=== PATIENT | female | born 1955 | race Caucasian/White ===

== ENCOUNTER 2017-01-11 23:09 | Inpatient (IN) | payer MEDICARE, OTHER ==
[~2017-01-11] VITALS: Ht 157.5 cm; Wt 142.7 kg
--- NOTE | ~2017-01-11 | HP ---
History And Physical [place] [place]. [address] NAME: SWAPNIL BEGUM : 53 STATUS : ADM IN [facility]#: [id number] AGE: 61 ADM/REG DATE : 01/12/17 MR#: [id number] REPORT SERV DATE: 01/12/17 DICTATED BY: CHIRAG SUÁREZ DATE: 01/12/17 REPORT STATUS : Draft TRANSCRIBED BY: MODMelissa DATE: 01/12/17 DATE OF ADMISSION: 01/12/2017 CHIEF COMPLAINT: Multiple. HISTORY OF PRESENT ILLNESS: The patient is a very pleasant 61-year-old white female. She previously has received her care in [place] at [facility]. She has a complex past medical history. She does have a chronic trach, which she has had in place for the last four years after she suffered an episode of what sounds like necrotizing fasciitis with a prolonged hospital stay, intubation, and ultimately resulting in a trach. She suffers from sleep apnea, so the decision was made to keep the trach as this improved her respiratory status. She has a significant cardiac history. She had a bypass in 2000. She had her last catheterization at [facility] in [place] in 02/2016. The patient states at that time, she had nonobstructive disease at her bypass sites and she had some distal very small vessel disease that was unamenable to catheterization. She has been in the hospital several times in the last few weeks for what she describes as fluttering in her chest, diaphoresis, and dizziness. She has had several medication adjustments in that time span, and she was actually in the hospital last week, at which time, they increased her hydralazine, put her back on her lisinopril. I gave her additional diuretics for heart failure. Apparently, she had an echo at her last hospital stay and she had an EF of 45%. She states she has continued to have intermittent episodes of feeling poorly with fluttering in her chest, dizziness. She has had a couple of different antidepressants prescribed for what they thought were panic attacks, however, she states those made her feel even worse. She started Ranexa, took maybe one dose, and states she felt dizzy when she stood up when she took that so she simply stopped this medication. She has not had typical chest pain. She has not had any documented fever. She has had some dysuria the last 48 hours. She has had no real abdominal pain. She has not had a new cough just these intermittent episodes of fluttering, diaphoresis, and dizziness. I do not have access to her records, but apparently, she has a history of chronic kidney disease and actually was referred to a pesticide use medical coordinator in her local town, but has not had the opportunity to see him just yet. In addition, she has a chronic anemia. She has had an EGD in the past, but not a colonoscopy. PAST MEDICAL HISTORY: 1. Sleep apnea with history of tracheostomy four years ago after prolonged intubation. 2. Probable COPD. 3. GI bleeding in the past. 4. Necrotizing fasciitis and MRSA infection requiring extensive skin and tissue surgery around her rectum extending around her abdominal wall in 2002. 5. CAD with history of CABG in 2000 with catheterization, 02/[address] [facility] with nonobstructive disease in her bypass graft and some very small vessel disease. 6. History of DVT/PE with hypercoagulable state, which is of unknown type, status post IVC filter, on chronic warfarin. 7. Systolic congestive heart failure with EF of 45%. 8. Considerable cardiomegaly. 9. Hypertension. 10.CKD, stage 3. History And Physical [address] [address] NAME: SWAPNIL BEGUM : 53 STATUS : ADM IN [facility]#: [id number] AGE: 61 ADM/REG DATE : 01/12/17 MR#: [id number] REPORT SERV DATE: 01/12/17 DICTATED BY: CHIRAG SUÁREZ DATE: 01/12/17 REPORT STATUS : Draft TRANSCRIBED BY: STEPHANIE DATE: 01/12/17 11.Anemia. 12.Morbid obesity. 13.Chronic hypoxemic respiratory failure, on 2 to 3 L of O2. SOCIAL HISTORY: She quit smoking in her 20s. She does not use alcohol. She is , but her ex- is at bedside. ALLERGIES: NO KNOWN DRUG ALLERGIES. PAST SURGICAL HISTORY: 1. She has had a trach. 2. She has had bypass surgery. 3. She has had an extensive skin and soft tissue surgery from her rectum extending around to her abdominal wall. REVIEW OF SYSTEMS: Full 10-point review of systems obtained. Pertinent positives as mentioned in the HPI. HOME MEDICATIONS: Reviewed and attached. PHYSICAL EXAMINATION: VITAL SIGNS: BP 165/73, temperature 98.3, pulse 71, respiratory rate 22, sats are 94% on 3 L. GENERAL: Morbidly obese white female. HEENT: Normocephalic, atraumatic. Throat is clear. NECK: Supple. Trach is in place. HEART: Regular rate and rhythm. LUNGS: Diminished at the bases, but otherwise clear. ABDOMEN: Soft, nontender, but obese with a large pannus. EXTREMITIES: Warm and dry. She has venous stasis changes. Diminished pulses at the feet, but she does not have significant lower extremity edema today. NEUROLOGIC: She is alert. She is oriented to person, place, and time. Her speech is intact. She has symmetrical strength and tone in all four extremities. PSYCH: Her mood and affect are appropriate. EKG shows sinus rhythm with no acute ST-T wave changes. LABORATORY AND X-RAY: Chest x-ray shows very marked cardiomegaly, some questionable pulmonary edema, but difficult to tell as she is quite large. Urinalysis shows greater than 182 whites with clumps, 21 reds, and large leukocyte esterase. BNP is 435. Troponin is 0.09 with an MB of 1.1. CBC: Hemoglobin and hematocrit are 9.2 and 32, platelet count 311, INR is 2, white count is 12.0. Chemistry panel shows sodium 139, potassium 4.6, chloride 102, CO2 30, BUN and creatinine 30 and 1.80, glucose is 178, magnesium is 2.5. Troponin is 0.09. ASSESSMENT/PLAN: 1. Urinary tract infection. We will treat with IV Rocephin, culture blood and urine, and History And Physical [address] [address] NAME: SWAPNIL BEGUM : 53 STATUS : ADM IN [facility]#: [id number] AGE: 61 ADM/REG DATE : 01/12/17 MR#: [id number] REPORT SERV DATE: 01/12/17 DICTATED BY: CHIRAG SUÁREZ DATE: 01/12/17 REPORT STATUS : Draft TRANSCRIBED BY: MODL DATE: 01/12/17 followup. 2. Acute on chronic kidney disease. Her previous creatinine was 1.3. She was recently placed back on her SOLOMON inhibitor. I think the first thing to do is stop her Solomon and treat her urinary tract infection. I need to obtain additional records on the patient. Hopefully by holding her SOLOMON inhibitor and treating her urinary tract infection, her kidney function will improve. I am hesitant to hold her diuretic as I think she is very prone to volume overload. 3. Spells with fluttering, diaphoresis, and dizziness. It is really difficult to tell the exact etiology. Certainly, she could be having some orthostasis related to medication changes, could be an unusual anginal equivalent, although she had a cath in 02/2016 and had open grafts, and she recently had an echo as well as multiple sets of cardiac enzymes. I am going to do two more sets of cardiac enzymes here as her initial troponin is 0.09. I am going to discontinue her beta shama and aspirin. I am going to reduce her hydralazine to her original dose of 25 t.i.d. I am going to hold the Ranexa since this is a new medication for her. I am going to stop the Effexor. We will monitor her on the charge attendant and obtain all her old records. 4. Obstructive sleep apnea with chronic trach with O2. 5. Chronic hypoxemic respiratory failure, recently this is worsened. 6. History of coronary artery disease, status post CABG and subsequent cath in 02/2016, grafts look open. Continue aspirin, beta blockade, statin therapy. 7. History of deep venous thrombosis/pulmonary embolism with IVC filter, on chronic warfarin. Daily PT/INR. Continue Coumadin. 8. Ischemic cardiomyopathy, EF 45%. Continue daily Lasix, beta blockade. I am going to hold her Solomon due to her acute kidney injury. 9. History of hypertension. Again, I am adjusting her blood pressure medications. 10.Anemia, chronic. We will check iron studies, reticulocyte count, and go from there. 11.Deep venous thrombosis prophylaxis, already fully anticoagulated. 12.Disposition pending above. PATY/STEPHANIE Chirag Suárez M.D. / [id number] CC: MD MIGUEL A Nickerson,MILES Keller M.D.
--- NOTE | ~2017-01-11 | DS ---
Discharge Summary [facility] [address] [place]. [address] NAME: SWAPNIL BEGUM : 53 STATUS : DIS IN PAT#: [id number] AGE: 62 ADM/REG DATE : 01/12/17 MR#: [id number] REPORT SERV DATE: 01/15/17 DICTATED BY: WILLARD GHOTRA DATE: 01/14/17 REPORT STATUS : Draft TRANSCRIBED BY: MODL DATE: 01/14/17 ADMISSION DATE: 01/12/2017 DISCHARGE DATE: 01/14/2017 DISCHARGE DIAGNOSES: 1. Urinary tract infection, more likely a positive urinalysis without a true urinary tract infection. 2. Acute on chronic kidney disease, likely this is her new baseline of her creatinine at 1.3. 3. Multiple spells of fluttering, diaphoresis and dizziness, may have been secondary to medication reactions, the patient has been asymptomatic throughout this hospital stay. 4. Chronic obstructive pulmonary disease with a chronic trach. 5. Morbid obesity with probable component of obesity hypoventilation syndrome. 6. Acute on chronic hypoxic respiratory failure, the patient does already have oxygen at home and she had home O2 evaluation that she failed, the patient will be discharged to home with home O2 at 2 L. 7. Coronary artery disease. 8. History of deep venous thrombosis and pulmonary embolism with an IVC filter and chronic Coumadin anticoagulation. 9. Ischemic cardiomyopathy with baseline ejection fraction of 45%. 10.Hypertension. 11.Chronic anemia. CONSULTANTS: None. PROCEDURES: None. HOSPITAL COURSE: This is a 62-year-old lady who was admitted to the hospital with initial diagnosis of urinary tract infection as well as acute kidney injury and spells of fluttering, diaphoresis, and dizziness. For details, please refer to excellent H and P dictated by Dr. Deyanira Suárez. In summary, the patient was admitted and was given IV fluid resuscitation as well as antibiotic therapy. By the next day, the patient's admission white blood cell count of 13 had normalized and the patient was actually no longer complaining of any urinary tract infection symptoms. Also, despite fluid resuscitation and excellent urine output, the patient's creatinine which was 1.8 on admission only improved to 1.6 without too much difference in her BUN, and thus, it is likely that the patient not just have an acute kidney injury, but likely a progressed chronic kidney disease. In any case, the patient was able to maintain normal electrolyte levels, and as far as the patient's initial complaint of fluttering, diaphoresis, and dizziness, the patient has remained asymptomatic throughout the hospital stay. It is again difficult to tell the exact etiology, but the patient has been started on quite a few medications recently which may have been the cause for her nonspecific symptoms. I did go ahead and stop the Effexor as well as Remeron which are two main new medications, and I have decreased her hydralazine back to her original dose of 25 mg p.o. b.i.d. The patient's blood pressure remained stable during this hospital stay with such a regimen, and I feel the patient may simply be followed up as an outpatient with a more gradual medication adjustments as needed. Discharge Summary [address] [address] NAME: SWAPNIL BEGUM : 53 STATUS : DIS IN PAT#: [id number] AGE: 62 ADM/REG DATE : 01/12/17 MR#: [id number] REPORT SERV DATE: 01/15/17 DICTATED BY: WILLARD GHOTRA DATE: 01/14/17 REPORT STATUS : Draft TRANSCRIBED BY: STEPHANIE DATE: 01/14/17 Also, the patient has a chronic trach, and the patient does have some oxygen support at home. At rest, the patient does not depend on any oxygen, but with prolonged conversations, the patient does desaturate oxygen level down to 84%, mainly because she has to cover her trach when she talks. Otherwise, the patient is comfortable on room air provided the trachea is unobstructed. The patient still qualified for home O2 and now she is going home with oxygen, keeping in mind that the patient has already had oxygen at home. In any case, the patient is now appearing back at her baseline health status, and she is now being discharged home with close outpatient followups plans. DISPOSITION: Home with home health. DISCHARGE MEDICATIONS: 1. Discontinued Effexor. 2. Discontinued Ranexa. 3. Hydralazine was reduced back to 25 mg p.o. b.i.d. from 50 mg p.o. t.i.d. Otherwise, no medication changes. FOLLOWUP: Please follow up with PCP in the next one to two weeks. A total of 35 minutes spent in coordinating this patient's discharge today. YSC/MODL Willard Ghotra MD / [id number] CC: MD MIGUEL A NickersonMILES
[2017-01-12 00:22] LABS: BASOPHILS 0.3 %; BASOPHILS ABSOLUTE 0.04 10/3/uL (0.0-0.16); EOSINOPHILS 1.3 %; EOSINOPHILS ABSOLUTE 0.16 10/3/uL (0.0-0.53); ER CBC TAT 0 Hrs 15 Mins; HEMOGLOBIN 9.2 g/dL (12.0-16.0); IMMATURE GRANULOCYTES 0.2 %; IMMATURE GRANULOCYTES ABSOLUTE 0.02 10/3/uL (0.0-0.11); LYMPHOCYTES 23.7 %; LYMPHOCYTES ABSOLUTE 2.84 10/3/uL (0.67-4.30); MEAN CORPUS HGB CONC 28.8 g/dL (32.0-36.0); MEAN CORPUSCULAR HEMOGLOB 24.8 pg (26.0-34.0); MEAN CORPUSCULAR VOLUME 86.3 fL (80-100); MEAN PLATELET VOLUME 10.9 fL (9.2-13.0); MONOCYTES 7.1 %; MONOCYTES ABSOLUTE 0.85 10/3/uL (0.21-1.20); NEUTROPHILS 67.4 %; NEUTROPHILS ABSOLUTE 8.08 10/3/uL (2.02-8.40); PLATELET COUNT 311 10/3/uL (150-400); RBC DISTRIBUTION WIDTH 18.6 % (12.0-16.0); RED CELL COUNT 3.71 10/6/uL (4.0-5.6)
[2017-01-12 00:31] LABS: MANUAL DIFF NO %
[2017-01-12 00:32] LABS: PARTIAL THROMBO TIME 42.6 SEC (22.5-37.2); PROTIME (NOT ORD) 22.5 SEC (12.0-14.5)
[2017-01-12 00:42] LABS: BUN (BLOOD UREA NITROGEN) 30 MG/DL (6-23); CALCIUM, SERUM 9.1 MG/DL (8.5-10.4); CHLORIDE, SERUM 102 MMOL/L (96-112); CO2 (CARBON DIOXIDE) 30 MMOL/L (24-34); GFR AFRICAN AMERICAN 34 ML/MIN (>=60); GFR NON AFRICAN AMERICAN 30 ML/MIN (>=60); GLUCOSE, SERUM 178 MG/DL (60-99); POTASSIUM, SERUM 4.6 MMOL/L (3.5-5.3); SODIUM, SERUM 139 MMOL/L (135-148)
[2017-01-12 00:45] LABS: TROPONIN I 0.09 NG/ML (<0.05)
[2017-01-12 00:46] LABS: CHEST PAIN PROFILE TAT 0 Hrs 38 Mins
[2017-01-12 02:18] LABS: CK-MB 1.1 NG/ML; CPK 97 U/L (0-200); TROPONIN I 0.09 NG/ML (<0.05)
[2017-01-12 03:52] LABS: ASCORBIC ACID (UR NOT ORDER) NEG (NEG); BILIRUBIN, URINE NEGATIVE (NEG); ER URINALYSIS TAT 0 Hrs 00 Mins; KETONE, URINE NEGATIVE (NEG); LEUKOCYTE ESTERASE(NOT OR LARGE (NEG); NITRITE (URINE) NEG (NEG)
[2017-01-12 03:56] LABS: WBC (NOT ORDERED) (RFLEX) > 182 (0-5)
[2017-01-12] MEDS ORDERED: C25 PO (09:04)
[2017-01-12] MEDS ORDERED: C5 PO (09:05)
[2017-01-12] MEDS ORDERED: RAN500 PO (09:06)
[2017-01-12] MEDS ORDERED: IMDUR60 PO (09:06)
[2017-01-12] MEDS ORDERED: FOLIC PO (09:06)
[2017-01-12] MEDS ORDERED: LOP100 PO (09:07)
[2017-01-12] MEDS ORDERED: LIPITOR40 PO (09:07)
[2017-01-12] MEDS ORDERED: VITD PO (09:07)
[2017-01-12] MEDS ORDERED: CYANO1000T PO (09:07)
[2017-01-12] MEDS ORDERED: PROTONIX PO (09:08)
[2017-01-12] MEDS ORDERED: CLARIT10 PO (09:08)
[2017-01-12] MEDS ORDERED: SPIRO25 PO (09:09)
[2017-01-12] MEDS ORDERED: PRIN20 PO (09:09)
[2017-01-12] MEDS ORDERED: EFFEXXR37 PO (09:10)
[2017-01-12] MEDS ORDERED: PROZAC40 MG PO (09:11)
[2017-01-12] MEDS ORDERED: LEVEMFLXPN SC (09:13)
[2017-01-12] MEDS ORDERED: L80 PO (09:13)
[2017-01-12] MEDS ORDERED: APRES50 PO (09:13)
[2017-01-12] MEDS ORDERED: MOMUD PO (09:14)
[2017-01-12] MEDS ORDERED: L40 PO (09:14)
[2017-01-12] MEDS ORDERED: ZOFRAN4 PO (09:14)
[2017-01-12] MEDS ORDERED: D.O.S.100 MG PO (09:14)
[2017-01-12] MEDS ORDERED: NOVOPEN SC (09:14)
[2017-01-12] MEDS ORDERED: T PO (09:15)
[2017-01-12] MEDS ORDERED: FLONASE NAS (09:15)
[2017-01-12] MEDS ORDERED: FLEETS ENEMA PR (09:18)
[2017-01-12 13:42] LABS: RETICULOCYTE COUNT 2.2 % (0.5-2.5); RETICULOCYTE COUNT ABSOLUTE 79.8 10/3/uL (20.2-119.8)
[2017-01-12 14:00] LABS: TROPONIN I 0.07 NG/ML (<0.05)
[2017-01-12 14:13] LABS: PROCALCITONIN 0.07 ng/mL (<0.5)
[2017-01-13 06:03] LABS: BASOPHILS 0.9 %; BASOPHILS ABSOLUTE 0.07 10/3/uL (0.0-0.16); EOSINOPHILS 2.4 %; EOSINOPHILS ABSOLUTE 0.18 10/3/uL (0.0-0.53); HEMATOCRIT 28.8 % (36.0-48.0); HEMOGLOBIN 8.4 g/dL (12.0-16.0); IMMATURE GRANULOCYTES 0.1 %; IMMATURE GRANULOCYTES ABSOLUTE 0.01 10/3/uL (0.0-0.11); LYMPHOCYTES 41.1 %; LYMPHOCYTES ABSOLUTE 3.14 10/3/uL (0.67-4.30); MEAN CORPUS HGB CONC 29.2 g/dL (32.0-36.0); MEAN CORPUSCULAR HEMOGLOB 25.5 pg (26.0-34.0); MEAN CORPUSCULAR VOLUME 87.3 fL (80-100); MEAN PLATELET VOLUME 11.3 fL (9.2-13.0); MONOCYTES 9.3 %; MONOCYTES ABSOLUTE 0.71 10/3/uL (0.21-1.20); NEUTROPHILS 46.2 %; NEUTROPHILS ABSOLUTE 3.53 10/3/uL (2.02-8.40); PLATELET COUNT 295 10/3/uL (150-400); RBC DISTRIBUTION WIDTH 18.8 % (12.0-16.0); WHITE BLOOD CELLS 7.6 10/3/uL (4.5-10.5)
[2017-01-13 06:09] LABS: MANUAL DIFF NO %
[2017-01-13 06:21] LABS: BUN (BLOOD UREA NITROGEN) 34 MG/DL (6-23); CHLORIDE, SERUM 100 MMOL/L (96-112); CO2 (CARBON DIOXIDE) 31 MMOL/L (24-34); GFR AFRICAN AMERICAN 32 ML/MIN (>=60); GFR NON AFRICAN AMERICAN 28 ML/MIN (>=60); GLUCOSE, SERUM 163 MG/DL (60-99); POTASSIUM, SERUM 4.8 MMOL/L (3.5-5.3); SODIUM, SERUM 135 MMOL/L (135-148); TROPONIN I 0.06 NG/ML (<0.05)
[2017-01-13 06:22] LABS: INTERNATIONAL NORMAL RATI 1.9 UNITS (-); PROTIME (NOT ORD) 21.3 SEC (12.0-14.5)
[2017-01-14 05:05] LABS: BASOPHILS 0.7 %; BASOPHILS ABSOLUTE 0.05 10/3/uL (0.0-0.16); EOSINOPHILS 2.1 %; EOSINOPHILS ABSOLUTE 0.15 10/3/uL (0.0-0.53); HEMATOCRIT 28.7 % (36.0-48.0); HEMOGLOBIN 8.5 g/dL (12.0-16.0); IMMATURE GRANULOCYTES 0.3 %; IMMATURE GRANULOCYTES ABSOLUTE 0.02 10/3/uL (0.0-0.11); LYMPHOCYTES 45.7 %; LYMPHOCYTES ABSOLUTE 3.32 10/3/uL (0.67-4.30); MEAN CORPUS HGB CONC 29.6 g/dL (32.0-36.0); MEAN CORPUSCULAR HEMOGLOB 25.8 pg (26.0-34.0); MEAN PLATELET VOLUME 11.1 fL (9.2-13.0); MONOCYTES 9.5 %; MONOCYTES ABSOLUTE 0.69 10/3/uL (0.21-1.20); NEUTROPHILS 41.7 %; NEUTROPHILS ABSOLUTE 3.03 10/3/uL (2.02-8.40); PLATELET COUNT 319 10/3/uL (150-400); RBC DISTRIBUTION WIDTH 18.7 % (12.0-16.0); WHITE BLOOD CELLS 7.3 10/3/uL (4.5-10.5)
[2017-01-14 05:09] LABS: MANUAL DIFF NO %
[2017-01-14 05:10] LABS: INTERNATIONAL NORMAL RATI 1.8 UNITS (-); PROTIME (NOT ORD) 20.8 SEC (12.0-14.5)
[2017-01-14 05:19] LABS: CALCIUM, SERUM 9.2 MG/DL (8.5-10.4); CHLORIDE, SERUM 98 MMOL/L (96-112); CO2 (CARBON DIOXIDE) 31 MMOL/L (24-34); CREATININE 1.63 MG/DL (0.55-1.02); GFR AFRICAN AMERICAN 38 ML/MIN (>=60); GFR NON AFRICAN AMERICAN 33 ML/MIN (>=60); GLUCOSE, SERUM 151 MG/DL (60-99); POTASSIUM, SERUM 4.4 MMOL/L (3.5-5.3); SODIUM, SERUM 136 MMOL/L (135-148)
[2017-01-14 05:22] LABS: BUN (BLOOD UREA NITROGEN) 29 MG/DL (6-23)
[2017-01-14] MEDS ORDERED: PRIN10 PO (11:15)
== END 2017-01-14 13:00 | disposition home health service (06) | DRG 312 ==
LOC: ER 23:09 → 6NO 01-12 09:29
PROVIDERS: Emergency Medicine; Hospitalist; Internal Medicine
DX: I95.1 Orthostatic hypotension (principal); J96.11 Chronic respiratory failure with hypoxia; Z93.0 Tracheostomy status; I50.22 Chronic systolic (congestive) heart failure; I13.0 Hypertensive heart and chronic kidney disease with heart failure and stage 1 through stage 4 chronic kidney disease, or unspecified chronic kidney disease; E66.2 Morbid (severe) obesity with alveolar hypoventilation; Z68.43 Body mass index [BMI] 50.0-59.9, adult; G47.33 Obstructive sleep apnea (adult) (pediatric); N18.3 Chronic kidney disease, stage 3 (moderate); I25.5 Ischemic cardiomyopathy; D64.9 Anemia, unspecified; J44.9 Chronic obstructive pulmonary disease, unspecified; Z95.1 Presence of aortocoronary bypass graft; Z86.718 Personal history of other venous thrombosis and embolism; Z79.01 Long term (current) use of anticoagulants; Z86.711 Personal history of pulmonary embolism; Z87.891 Personal history of nicotine dependence; Z95.828 Presence of other vascular implants and grafts
CPT/HCPCS: 31720; 71020; 80048; 81001; 82550; 82553; 82728; 82962; 83540; 83550; 83735; 83880; 84145; 84484; 85025; 85045; 85610; 85730; 87086; 93005; A9270-GY